=== PATIENT | male | born 1980 | race Caucasian/White ===

== ENCOUNTER 2021-01-04 00:41 | Emergency (ER) | payer BC ==
[~2021-01-04] VITALS: Ht 182.9 cm; Wt 90.9 kg
[~2021-01-04 00:41] MED LIST: AMOXICILLIN 8751 TAB PO; PERCOCET 325 MG1 TA2 PO
[2021-01-04 02:03] VITALS: BP 131/85; PULSE 88; TEMP 97.6
== END 2021-01-04 02:03 | disposition home or self-care (01) ==
LOC: COL.ER 00:41
DX: S61.412A Laceration without foreign body of left hand, initial encounter (principal); W31.2XXA Contact with powered woodworking and forming machines, initial encounter; Y93.89 Activity, other specified